=== PATIENT | female | born 1960 | race Caucasian/White ===

== ENCOUNTER 2024-01-05 21:36 | Inpatient (IN) | payer MEDICAID ==
[~2024-01-05] VITALS: Ht 152.4 cm; Wt 55.8 kg
[2024-01-05 21:50] VITALS: BP_SYST 95; PULSE 81; RESP 18; TEMP 96.8; O2SAT 93
[2024-01-06] MEDS: MORPHINE 4 MG INJ. 4 MG/ML VIAL IVP ONE (00:44)
[2024-01-06 01:15] LABS: BASOPHILS % (AUTO) 0.1 % (0.0-2.0); EOSINOPHILS % (AUTO) 0.1 % (0.0-4.0); HEMATOCRIT 46.6 % (36-48); HEMOGLOBIN 15.9 g/dL (12.0-16.0); LYMPHOCYTES # (AUTO) 0.3 K/uL (1.0-5.5); LYMPHOCYTES % (AUTO) 1.5 % (20.5-51.5); MEAN CORPUSCULAR HEMOGLOBIN 30 pg (27-31); MEAN CORPUSCULAR HGB CONC 34 % (32-36); MEAN CORPUSCULAR VOLUME 88 fL (79.0-98.0); MONOCYTES # (AUTO) 0.3 K/uL (0.0-1.0); MONOCYTES % (AUTO) 1.4 % (1.7-9.3); NEUTROPHILS # (AUTO) 20.9 K/uL (1.8-7.7); NEUTROPHILS % (AUTO) 96.9 % (40.0-70.0); PLATELET COUNT (AUTO) 243 K/uL (130-430); RED BLOOD CELL COUNT(AUTO) 5.28 MIL/uL (4.2-6.2); RED CELL DISTRIBUTION WIDTH 13.7 % (9.0-15.0); WHITE BLOOD COUNT (AUTO) 21.5 K/uL (4.8-10.8)
[2024-01-06 01:25] LABS: ANION GAP 12 (5-15); CALCIUM 9.1 mg/dL (8.4-11.0); CARBON DIOXIDE 24 mmol/L (23-29); CHLORIDE 93 mmol/L (98-107); CREATININE 2.79 mg/dL (0.55-1.30); GFR AFRICAN AMERICAN 22 mL/min (>90); GLUCOSE 102 mg/dL (74-106); POTASSIUM 3.9 mmol/L (3.5-5.1); SODIUM SERUM 129 mmol/L (136-145); UREA NITROGEN, BLOOD 57 mg/dL (8-21)
[2024-01-06 01:26] LABS: GFR NON AFRICAN-AMERICAN 18 mL/min (>90)
[2024-01-06] MEDS: LORazepam 2 MG/ML VIAL IVP ONE (03:00)
[2024-01-06] MEDS ORDERED: LORazepam 2 MG/ML VIAL ONE (05:21)
[2024-01-06] MEDS: NACL 0.9% 1,000 ML IV ONE (05:23)
[2024-01-06] MEDS: LORazepam 2 MG/ML VIAL IVP PRN ×2 (05:26→22:04)
[2024-01-06 07:30] LABS: BILIRUBIN,URINE 1+ (NEGATIVE); BLOOD, URINE 3+ (NEGATIVE); CLARITY/URINE SL CLOUDY (CLEAR); COLOR,URINE BROWN (YELLOW); GLUCOSE,URINE NEGATIVE (NEGATIVE); KETONES,URINE NEGATIVE (NEGATIVE); LEUKOCYTE ESTERASE ,URINE TRACE (NEGATIVE); NITRITE, URINE NEGATIVE (NEGATIVE); PROTEIN URINE 2+ (NEGATIVE)
[2024-01-06] MEDS ORDERED: DOCUSATE SODIUM 100 MG CAPSULE PO PRN (07:45)
[2024-01-06] MEDS ORDERED: ONDANSETRON HCL 4 MG/2 ML VIAL IVP PRN (07:45)
[2024-01-06] MEDS ORDERED: MUPIROCIN 2% TOPICAL OINTMENT 22 GM NS PRN (07:45)
[2024-01-06 07:49] LABS: BACTERIA,URINE FEW /HPF (None Seen); RBC,URINE 80-100 /HPF (0-3)
[2024-01-06 07:50] LABS: COARSE GRANULAR CASTS,URINE 0-3 /LPF (None Seen)
[2024-01-06] MEDS: NACL 0.9% 1,000 ML IV SCH (08:15)
[2024-01-06 08:20] LABS: BARBITURATE, URINE NEGATIVE (NEG <=200); METHAMPHETAMINES SCREEN,URINE POSITIVE (NEG <=500); URINE AMPHETAMINE POSITIVE (NEG <=500); URINE METHADONE NEGATIVE (NEG <=200)
[2024-01-06 08:21] LABS: BENZODIAZEPINE, URINE POSITIVE (NEG <=150); CANNABINOID, URINE NEGATIVE (NEG <=50); COCAINE, URINE NEGATIVE (NEG <=150); OPIATE, URINE POSITIVE (NEG <=100); PHENCYCLIDINE SCREEN,URINE NEGATIVE (NEG <=25); URINE OXYCODONE SCREEN NEGATIVE (NEG <=100)
[2024-01-06 08:24] LABS: UR TRICYCLIC ANTIDEPRESSANTS NEGATIVE (NEG <=300)
[2024-01-06] MEDS ORDERED: ACETAMINOPHEN 325 MG TABLET PO PRN ×2 (08:45)
[2024-01-06] MEDS ORDERED: cefTRIAXone 1 GM VIAL ONE (09:33)
[2024-01-06] MEDS: chlordiazePOXIDE HCL 25 MG CAPSULE PO SCH (09:45)
[2024-01-06] MEDS ORDERED: ACETAMINOPHEN 500 MG TABLET ONE (11:04)
[2024-01-06] MEDS: ACETAMINOPHEN 325 MG TABLET PO PRN (11:10)
[2024-01-06] MEDS: cefTRIAXone 1 GM in D5W 50 ML IV SCH (14:43)
[2024-01-06 15:12] LABS: INR 1.2 (0.8-1.2)
[2024-01-06 17:56] LABS: BASOPHILS % (AUTO) 0.1 % (0.0-2.0); EOSINOPHILS # (AUTO) 0.2 K/uL (0.0-0.4); HEMOGLOBIN 15.5 g/dL (12.0-16.0); LYMPHOCYTES # (AUTO) 0.1 K/uL (1.0-5.5); LYMPHOCYTES % (AUTO) 0.6 % (20.5-51.5); MEAN CORPUSCULAR HEMOGLOBIN 30 pg (27-31); MEAN CORPUSCULAR HGB CONC 34 % (32-36); MEAN CORPUSCULAR VOLUME 87 fL (79.0-98.0); MONOCYTES % (AUTO) 0.2 % (1.7-9.3); NEUTROPHILS # (AUTO) 18.3 K/uL (1.8-7.7); NEUTROPHILS % (AUTO) 98.1 % (40.0-70.0); PLATELET COUNT (AUTO) 188 K/uL (130-430); RED BLOOD CELL COUNT(AUTO) 5.17 MIL/uL (4.2-6.2); RED CELL DISTRIBUTION WIDTH 13.7 % (9.0-15.0); WHITE BLOOD COUNT (AUTO) 18.7 K/uL (4.8-10.8)
[2024-01-06 18:57] VITALS: BP_SYST 133; PULSE 110; RESP 20; TEMP 99.3; O2SAT 95
[2024-01-06 20:00] VITALS: BP_SYST 191; PULSE 65; RESP 22; TEMP 100.7
[2024-01-07 07:20] LABS: CALCIUM 7.6 mg/dL (8.4-11.0); CREATININE 1.82 mg/dL (0.55-1.30)
[2024-01-07 07:39] LABS: POTASSIUM 2.7 mmol/L (3.5-5.1)
[2024-01-07 07:41] LABS: BASOPHILS % (AUTO) 0.2 % (0.0-2.0); EOSINOPHILS # (AUTO) 0.1 K/uL (0.0-0.4); EOSINOPHILS % (AUTO) 0.6 % (0.0-4.0); HEMATOCRIT 42.4 % (36-48); HEMOGLOBIN 14.5 g/dL (12.0-16.0); LYMPHOCYTES # (AUTO) 0.2 K/uL (1.0-5.5); MEAN CORPUSCULAR HEMOGLOBIN 30 pg (27-31); MEAN CORPUSCULAR HGB CONC 34 % (32-36); MEAN CORPUSCULAR VOLUME 88 fL (79.0-98.0); MONOCYTES # (AUTO) 0.2 K/uL (0.0-1.0); MONOCYTES % (AUTO) 1.2 % (1.7-9.3); PLATELET COUNT (AUTO) 191 K/uL (130-430); RED BLOOD CELL COUNT(AUTO) 4.82 MIL/uL (4.2-6.2); WHITE BLOOD COUNT (AUTO) 19.6 K/uL (4.8-10.8)
[2024-01-07] MEDS: POTASSIUM CHLORIDE 20 MEQ TABLET.ER PO PRN (08:53)
[2024-01-07] MEDS: HEPARIN SODIUM,PORCINE 5,000 UNITS/ML VIAL SUBCUT SCH (09:09)
[2024-01-07] MEDS: metroNIDAZOLE 500 mg/NS 100 ML IV SCH (09:28)
[2024-01-07] MEDS: CALCIUM GLUCONATE 1 GM in NS 100 ML IV ONE (10:00)
[2024-01-07 11:17] VITALS: BP_SYST 90; PULSE 92; RESP 16; TEMP 97.1; O2SAT 92
[2024-01-07 13:11] VITALS: BP_SYST 99; PULSE 78; RESP 16; TEMP 98; O2SAT 92
[2024-01-07] MEDS: PIPERACILLIN/TAZO 3.375 GM in D5W 50 ML IV ONE (13:14)
[2024-01-07] MEDS: POTASSIUM CHLORIDE 40 MEQ in NS 250 ML IV ONE (14:31)
[2024-01-07 15:07] VITALS: BP_SYST 113; PULSE 59; RESP 16; TEMP 97.7; O2SAT 93
[2024-01-07 20:00] VITALS: BP_SYST 114; PULSE 82; RESP 18; TEMP 97.8; O2SAT 94
[2024-01-07] MEDS: PIPERACILLIN/TAZO 3.375 GM in D5W 50 ML IV SCH (22:13)
[2024-01-07] MEDS ORDERED: LINEZOLID 300 ML IV ONE (23:17)
[2024-01-07] MEDS: LINEZOLID 300 ML IV SCH (23:28)
[2024-01-08 00:17] VITALS: BP_SYST 98; PULSE 83; RESP 19; TEMP 98.5; O2SAT 69; O2SAT 94
[2024-01-08 07:26] LABS: HEMATOCRIT 45.2 % (36-48); HEMOGLOBIN 15.4 g/dL (12.0-16.0); MEAN CORPUSCULAR HEMOGLOBIN 30 pg (27-31); MEAN CORPUSCULAR HGB CONC 34 % (32-36); MEAN CORPUSCULAR VOLUME 88 fL (79.0-98.0); PLATELET COUNT (AUTO) 138 K/uL (130-430); RED BLOOD CELL COUNT(AUTO) 5.13 MIL/uL (4.2-6.2); RED CELL DISTRIBUTION WIDTH 13.8 % (9.0-15.0); WHITE BLOOD COUNT (AUTO) 21.3 K/uL (4.8-10.8)
[2024-01-08 07:49] LABS: CALCIUM 8.1 mg/dL (8.4-11.0); CREATININE 1.32 mg/dL (0.55-1.30)
[2024-01-08 07:51] LABS: POTASSIUM 2.9 mmol/L (3.5-5.1)
[2024-01-08 08:24] VITALS: BP_SYST 87; PULSE 60; RESP 24; TEMP 96.4; O2SAT 94
[2024-01-08 09:42] LABS: ATYPICAL LYMPHOCYTES % 1 % (0-0); BAND % (MANUAL) 13 % (0-6); BASOPHILS % (MANUAL) 0 % (0-2); EOSINOPHILS % (MANUAL) 0 % (0-7); LYMPHOCYTES % (MANUAL) 2 % (20-46); MONOCYTES % (MANUAL) 2 % (0-11); PLATELET ESTIMATE ADEQUATE (ADEQUATE)
[2024-01-08 11:23] VITALS: BP_SYST 90; PULSE 72; RESP 16; TEMP 97; O2SAT 93
[2024-01-08] MEDS: NACL 0.9% 1,000 ML IV SCH (12:17)
[2024-01-08] MEDS: POTASSIUM CHLORIDE 60 MEQ in NS 500 ML IV ONE (14:04)
[2024-01-08 15:18] VITALS: BP_SYST 95; PULSE 66; RESP 16; TEMP 96.1; O2SAT 93
[2024-01-08 20:00] VITALS: BP_SYST 85; PULSE 67; RESP 18; TEMP 97.8; O2SAT 98
[2024-01-08] MEDS: NACL 0.9% 1,000 ML IV ONE (20:27)
[2024-01-09 00:18] VITALS: BP_SYST 111; PULSE 77; RESP 17; TEMP 96.4; O2SAT 100
[2024-01-09 01:52] LABS: BILIRUBIN,URINE 2+ (NEGATIVE); BLOOD, URINE 3+ (NEGATIVE); CLARITY/URINE SL CLOUDY (CLEAR); COLOR,URINE YELLOW (YELLOW); GLUCOSE,URINE NEGATIVE (NEGATIVE); KETONES,URINE NEGATIVE (NEGATIVE); LEUKOCYTE ESTERASE ,URINE TRACE (NEGATIVE); NITRITE, URINE NEGATIVE (NEGATIVE); PROTEIN URINE 2+ (NEGATIVE)
[2024-01-09 02:21] LABS: BACTERIA,URINE RARE /HPF (None Seen); RBC,URINE 20-50 /HPF (0-3)
[2024-01-09 05:49] LABS: EOSINOPHILS # (AUTO) 0.1 K/uL (0.0-0.4); EOSINOPHILS % (AUTO) 0.3 % (0.0-4.0); HEMATOCRIT 43.6 % (36-48); HEMOGLOBIN 14.9 g/dL (12.0-16.0); LYMPHOCYTES # (AUTO) 0.8 K/uL (1.0-5.5); LYMPHOCYTES % (AUTO) 4.3 % (20.5-51.5); MEAN CORPUSCULAR HEMOGLOBIN 30 pg (27-31); MEAN CORPUSCULAR HGB CONC 34 % (32-36); MEAN CORPUSCULAR VOLUME 88 fL (79.0-98.0); MONOCYTES # (AUTO) 0.8 K/uL (0.0-1.0); NEUTROPHILS # (AUTO) 17.8 K/uL (1.8-7.7); NEUTROPHILS % (AUTO) 91.4 % (40.0-70.0); PLATELET COUNT (AUTO) 124 K/uL (130-430); RED BLOOD CELL COUNT(AUTO) 4.96 MIL/uL (4.2-6.2); RED CELL DISTRIBUTION WIDTH 14.2 % (9.0-15.0); WHITE BLOOD COUNT (AUTO) 19.5 K/uL (4.8-10.8)
[2024-01-09 06:16] LABS: CALCIUM 7.6 mg/dL (8.4-11.0); CREATININE 0.98 mg/dL (0.55-1.30)
[2024-01-09 08:10] VITALS: BP_SYST 102; PULSE 67; RESP 28; TEMP 97.7; O2SAT 96
[2024-01-09 08:11] VITALS: O2SAT 96
[2024-01-09] MEDS ORDERED: ACETAMINOPHEN 500 MG TABLET PO PRN ×3 (10:15)
[2024-01-09] MEDS: FOLIC ACID 1 MG TABLET PO SCH (10:59)
[2024-01-09] MEDS: THIAMINE HCL 100 MG TABLET PO ONE (11:06)
[2024-01-09 11:13] VITALS: BP_SYST 142; PULSE 69; RESP 18; TEMP 97.8; O2SAT 98
[2024-01-09 16:16] VITALS: BP_SYST 144; PULSE 70; RESP 20; TEMP 98; O2SAT 98
[2024-01-09 20:10] VITALS: BP_SYST 134; PULSE 68; RESP 22; TEMP 97.2; O2SAT 98
[2024-01-10 00:20] VITALS: BP_SYST 121; PULSE 75; RESP 20; TEMP 97.5; O2SAT 98
[2024-01-10 04:48] LABS: BASOPHILS % (AUTO) 0.1 % (0.0-2.0); EOSINOPHILS % (AUTO) 0.3 % (0.0-4.0); HEMATOCRIT 42.2 % (36-48); HEMOGLOBIN 14.4 g/dL (12.0-16.0); LYMPHOCYTES # (AUTO) 0.9 K/uL (1.0-5.5); LYMPHOCYTES % (AUTO) 6.6 % (20.5-51.5); MEAN CORPUSCULAR HEMOGLOBIN 30 pg (27-31); MEAN CORPUSCULAR HGB CONC 34 % (32-36); MEAN CORPUSCULAR VOLUME 87 fL (79.0-98.0); MONOCYTES # (AUTO) 0.7 K/uL (0.0-1.0); MONOCYTES % (AUTO) 4.8 % (1.7-9.3); NEUTROPHILS # (AUTO) 12.5 K/uL (1.8-7.7); NEUTROPHILS % (AUTO) 88.2 % (40.0-70.0); PLATELET COUNT (AUTO) 165 K/uL (130-430); RED BLOOD CELL COUNT(AUTO) 4.83 MIL/uL (4.2-6.2); RED CELL DISTRIBUTION WIDTH 14.3 % (9.0-15.0); WHITE BLOOD COUNT (AUTO) 14.2 K/uL (4.8-10.8)
[2024-01-10 05:01] LABS: CALCIUM 7.7 mg/dL (8.4-11.0); CREATININE 0.94 mg/dL (0.55-1.30)
[2024-01-10 05:15] LABS: POTASSIUM 2.8 mmol/L (3.5-5.1)
[2024-01-10 08:03] VITALS: BP_SYST 158; PULSE 78; RESP 22; TEMP 96.6; O2SAT 99
[2024-01-10 08:30] VITALS: O2SAT 99
[2024-01-10] MEDS: THIAMINE HCL 100 MG TABLET PO SCH (09:05)
[2024-01-10] MEDS: POTASSIUM CHLORIDE 40 MEQ, LIDOCAINE JECT 2% PF 100 MG 50 MG in NS 250 ML IV PRN (09:05)
[2024-01-10 09:52] LABS: ALBUMIN 1.5 g/dL (3.4-4.8); BILIRUBIN,DIRECT 1.6 mg/dL (0.0-0.3); TOTAL PROTEIN, SERUM 6.3 g/dL (6.4-8.3)
[2024-01-10] MEDS: POTASSIUM CHLORIDE 20 MEQ TABLET.ER PO ONE (10:31)
[2024-01-10 11:51] VITALS: BP_SYST 147; PULSE 80; RESP 19; TEMP 97.9; O2SAT 95
[2024-01-10] MEDS: amLODIPine BESYLATE 5 MG TABLET PO ONE (16:19)
[2024-01-10 18:29] VITALS: BP_SYST 151; PULSE 74; RESP 20; TEMP 98; O2SAT 95
[2024-01-10 19:55] VITALS: BP_SYST 165; PULSE 77; RESP 22; TEMP 97.5; O2SAT 100
[2024-01-10] MEDS: chlordiazePOXIDE HCL 25 MG CAPSULE PO SCH (21:46)
[2024-01-10] MEDS: HYDROcodone/ACETAMIN 5-325 MG TAB (NORCO/ VICODIN) PO PRN (21:47)
[2024-01-11 00:20] VITALS: BP_SYST 157; PULSE 77; RESP 20; TEMP 97.5; O2SAT 100
[2024-01-11 05:58] LABS: BASOPHILS % (AUTO) 0.1 % (0.0-2.0); EOSINOPHILS % (AUTO) 0.3 % (0.0-4.0); HEMATOCRIT 40.1 % (36-48); HEMOGLOBIN 13.8 g/dL (12.0-16.0); LYMPHOCYTES # (AUTO) 0.9 K/uL (1.0-5.5); LYMPHOCYTES % (AUTO) 8.8 % (20.5-51.5); MEAN CORPUSCULAR HEMOGLOBIN 30 pg (27-31); MEAN CORPUSCULAR HGB CONC 34 % (32-36); MEAN CORPUSCULAR VOLUME 87 fL (79.0-98.0); MONOCYTES # (AUTO) 0.4 K/uL (0.0-1.0); MONOCYTES % (AUTO) 4.2 % (1.7-9.3); NEUTROPHILS # (AUTO) 9.1 K/uL (1.8-7.7); NEUTROPHILS % (AUTO) 86.6 % (40.0-70.0); PLATELET COUNT (AUTO) 182 K/uL (130-430); RED BLOOD CELL COUNT(AUTO) 4.62 MIL/uL (4.2-6.2); RED CELL DISTRIBUTION WIDTH 14.4 % (9.0-15.0)
[2024-01-11 06:24] LABS: CALCIUM 7.4 mg/dL (8.4-11.0); CREATININE 0.92 mg/dL (0.55-1.30)
[2024-01-11 07:03] LABS: POTASSIUM 2.9 mmol/L (3.5-5.1)
[2024-01-11 07:18] LABS: WHITE BLOOD COUNT (AUTO) 10.5 K/uL (4.8-10.8)
[2024-01-11 07:40] VITALS: BP_SYST 154; PULSE 92; RESP 18; TEMP 96.8; O2SAT 96
[2024-01-11] MEDS ORDERED: POTASSIUM CHLORIDE 20 MEQ TABLET.ER PO ONE (08:45)
[2024-01-11] MEDS: amLODIPine BESYLATE 5 MG TABLET PO SCH (09:00)
[2024-01-11] MEDS: D5W 1,000 ML IV SCH (09:19)
[2024-01-11 10:30] VITALS: O2SAT 96
[2024-01-11 11:22] VITALS: BP_SYST 123; PULSE 96; RESP 17; TEMP 97.9; O2SAT 94
[2024-01-11] MEDS: KCL 20 mEq in 100 mL (PREMIX) 100 ML IV ONE (15:21)
[2024-01-11 16:23] VITALS: BP_SYST 166; PULSE 91; RESP 17; TEMP 97.2; O2SAT 100
[2024-01-11] MEDS: hydrALAZINE HCL 20 MG/ML VIAL IVP PRN (17:35)
[2024-01-11 20:00] VITALS: BP_SYST 150; PULSE 95; RESP 18; TEMP 97.8; O2SAT 100
[2024-01-12] VITALS: BP_SYST 157; PULSE 87; RESP 18; TEMP 98.1; O2SAT 100
[2024-01-12 06:07] LABS: BASOPHILS % (AUTO) 0.1 % (0.0-2.0); EOSINOPHILS % (AUTO) 0.2 % (0.0-4.0); HEMATOCRIT 40.6 % (36-48); HEMOGLOBIN 14.2 g/dL (12.0-16.0); LYMPHOCYTES # (AUTO) 0.9 K/uL (1.0-5.5); MEAN CORPUSCULAR HEMOGLOBIN 30 pg (27-31); MEAN CORPUSCULAR HGB CONC 35 % (32-36); MEAN CORPUSCULAR VOLUME 87 fL (79.0-98.0); MONOCYTES # (AUTO) 0.4 K/uL (0.0-1.0); MONOCYTES % (AUTO) 4.4 % (1.7-9.3); NEUTROPHILS % (AUTO) 84.3 % (40.0-70.0); PLATELET COUNT (AUTO) 200 K/uL (130-430); RED BLOOD CELL COUNT(AUTO) 4.68 MIL/uL (4.2-6.2); RED CELL DISTRIBUTION WIDTH 14.4 % (9.0-15.0); WHITE BLOOD COUNT (AUTO) 8.3 K/uL (4.8-10.8)
[2024-01-12 06:32] LABS: CALCIUM 7.7 mg/dL (8.4-11.0); CREATININE 0.84 mg/dL (0.55-1.30)
[2024-01-12 07:07] LABS: POTASSIUM 2.8 mmol/L (3.5-5.1)
[2024-01-12 08:05] VITALS: O2SAT 94
[2024-01-12 08:21] VITALS: BP_SYST 174; PULSE 82; RESP 19; TEMP 97.3; O2SAT 94
[2024-01-12] MEDS: KCL 40 mEq in D5W 1000 mL 1,000 ML IV SCH (08:30)
[2024-01-12] MEDS ORDERED: KCL 40 mEq in 100 mL (PREMIX) 100 ML IV ONE (08:30)
[2024-01-12] MEDS: amLODIPine BESYLATE 10 MG TABLET PO SCH (09:00)
[2024-01-12 11:30] VITALS: BP_SYST 158; PULSE 78; RESP 19; TEMP 97.9; O2SAT 97
[2024-01-12] MEDS: MAGNESIUM SULFATE 50 ML IV PRN (11:38)
[2024-01-12] MEDS: MAGNESIUM SULFATE/D5W 100 ML IV ONE (14:08)
[2024-01-12 17:50] VITALS: BP_SYST 158; PULSE 85; RESP 20; TEMP 98.4; O2SAT 99
[2024-01-12 20:00] VITALS: BP_SYST 147; PULSE 85; RESP 18; TEMP 98.3; O2SAT 98
[2024-01-12] MEDS: BALSAM PERU/CASTOR OIL 56.7 GM OINT...G. TP ONE (21:32)
[2024-01-13] MEDS: KCL 40 mEq in 100 mL (PREMIX) 100 ML IV ONE (00:27)
[2024-01-13 00:46] VITALS: BP_SYST 157; PULSE 72; RESP 16; TEMP 96.4; O2SAT 99
[2024-01-13] MEDS: ZOLPIDEM TARTRATE 5 MG TABLET PO PRN (01:05)
[2024-01-13 08:31] VITALS: BP_SYST 119; PULSE 87; RESP 20; TEMP 97.5; O2SAT 97
[2024-01-13 08:38] VITALS: O2SAT 97
[2024-01-13] MEDS: BALSAM PERU/CASTOR OIL 56.7 GM OINT...G. TP SCH (09:51)
[2024-01-13 10:27] LABS: BASOPHILS # (AUTO) 0.1 K/uL (0.0-0.2); BASOPHILS % (AUTO) 0.6 % (0.0-2.0); EOSINOPHILS % (AUTO) 0.5 % (0.0-4.0); HEMOGLOBIN 13.5 g/dL (12.0-16.0); LYMPHOCYTES # (AUTO) 0.9 K/uL (1.0-5.5); LYMPHOCYTES % (AUTO) 9.9 % (20.5-51.5); MEAN CORPUSCULAR HEMOGLOBIN 30 pg (27-31); MEAN CORPUSCULAR HGB CONC 35 % (32-36); MEAN CORPUSCULAR VOLUME 86 fL (79.0-98.0); MONOCYTES # (AUTO) 0.6 K/uL (0.0-1.0); MONOCYTES % (AUTO) 6.8 % (1.7-9.3); NEUTROPHILS # (AUTO) 7.8 K/uL (1.8-7.7); NEUTROPHILS % (AUTO) 82.2 % (40.0-70.0); PLATELET COUNT (AUTO) 202 K/uL (130-430); RED BLOOD CELL COUNT(AUTO) 4.52 MIL/uL (4.2-6.2); RED CELL DISTRIBUTION WIDTH 14.2 % (9.0-15.0); WHITE BLOOD COUNT (AUTO) 9.5 K/uL (4.8-10.8)
[2024-01-13 10:39] LABS: ALBUMIN 1.7 g/dL (3.4-4.8); CALCIUM 7.6 mg/dL (8.4-11.0); CREATININE 0.74 mg/dL (0.55-1.30); POTASSIUM 3.1 mmol/L (3.5-5.1); TOTAL PROTEIN, SERUM 7.3 g/dL (6.4-8.3)
[2024-01-13 12:48] VITALS: BP_SYST 143; PULSE 82; RESP 20; TEMP 97.5; O2SAT 99
[2024-01-13] MEDS ORDERED: MAGNESIUM SULFATE 1 GM/2 ML VIAL IVP ONE (13:00)
[2024-01-13 16:34] VITALS: BP_SYST 120; PULSE 76; RESP 18; TEMP 96.8; O2SAT 96
[2024-01-13] MEDS: MAGNESIUM SUL 2 GM/50 ML PREMIX IV ONE (19:46)
[2024-01-13 20:00] VITALS: BP_SYST 137; PULSE 81; RESP 17; TEMP 97.8; O2SAT 98
[2024-01-13] MEDS: POTASSIUM CHLORIDE 20 MEQ TABLET.ER PO ONE (20:00)
[2024-01-14 00:29] VITALS: BP_SYST 140; PULSE 74; RESP 15; TEMP 97.6; O2SAT 98
[2024-01-14 07:01] LABS: BASOPHILS % (AUTO) 0.4 % (0.0-2.0); EOSINOPHILS # (AUTO) 0.1 K/uL (0.0-0.4); EOSINOPHILS % (AUTO) 0.7 % (0.0-4.0); HEMATOCRIT 40.1 % (36-48); HEMOGLOBIN 13.8 g/dL (12.0-16.0); LYMPHOCYTES # (AUTO) 1.1 K/uL (1.0-5.5); LYMPHOCYTES % (AUTO) 10.1 % (20.5-51.5); MEAN CORPUSCULAR HEMOGLOBIN 30 pg (27-31); MEAN CORPUSCULAR HGB CONC 34 % (32-36); MEAN CORPUSCULAR VOLUME 86 fL (79.0-98.0); MONOCYTES # (AUTO) 0.9 K/uL (0.0-1.0); MONOCYTES % (AUTO) 8.2 % (1.7-9.3); NEUTROPHILS # (AUTO) 8.4 K/uL (1.8-7.7); NEUTROPHILS % (AUTO) 80.6 % (40.0-70.0); PLATELET COUNT (AUTO) 217 K/uL (130-430); RED BLOOD CELL COUNT(AUTO) 4.66 MIL/uL (4.2-6.2); RED CELL DISTRIBUTION WIDTH 14.3 % (9.0-15.0); WHITE BLOOD COUNT (AUTO) 10.4 K/uL (4.8-10.8)
[2024-01-14 07:27] LABS: CALCIUM 7.9 mg/dL (8.4-11.0); CREATININE 0.77 mg/dL (0.55-1.30); POTASSIUM 3.7 mmol/L (3.5-5.1)
[2024-01-14 08:44] VITALS: BP_SYST 154; PULSE 77; RESP 16; TEMP 97.2; O2SAT 98
[2024-01-14 12:43] VITALS: BP_SYST 154; PULSE 90; RESP 16; TEMP 97.8; O2SAT 99
[2024-01-14 16:17] VITALS: BP_SYST 138; PULSE 80; RESP 16; TEMP 97.5; O2SAT 97
[2024-01-14 20:00] VITALS: BP_SYST 138; PULSE 79; RESP 18; TEMP 97.1; O2SAT 95
[2024-01-15 00:41] VITALS: BP_SYST 120; PULSE 81; RESP 18; TEMP 97.6; O2SAT 98
[2024-01-15 08:09] VITALS: BP_SYST 139; PULSE 79; RESP 22; TEMP 97.6; O2SAT 100
[2024-01-15 11:39] VITALS: BP_SYST 135; PULSE 76; RESP 16; TEMP 97.8; O2SAT 97
[2024-01-15 16:51] VITALS: BP_SYST 126; PULSE 76; RESP 19; TEMP 98.3; O2SAT 96
[2024-01-15 20:00] VITALS: BP_SYST 147; PULSE 80; RESP 16; TEMP 98.5; O2SAT 98
[2024-01-15 21:13] VITALS: O2SAT 98
[2024-01-16 02:30] VITALS: BP_SYST 123; PULSE 79; RESP 17; TEMP 96.5; O2SAT 98
[2024-01-16 08:06] VITALS: BP_SYST 132; PULSE 76; RESP 18; TEMP 97.2; O2SAT 98
[2024-01-16 11:48] VITALS: BP_SYST 114; PULSE 77; RESP 18; TEMP 97.5; O2SAT 98
[2024-01-16 15:05] VITALS: O2SAT 96
[2024-01-16 16:21] VITALS: BP_SYST 119; PULSE 73; RESP 16; TEMP 97.9; O2SAT 97
[2024-01-16] MEDS ORDERED: MULT-1117 PO (18:13)
[2024-01-16] MEDS ORDERED: THIA100T70 PO (18:13)
[2024-01-16] MEDS ORDERED: NOR10 PO (18:13)
[2024-01-16] MEDS ORDERED: HYDR50TA61 PO (18:13)
[2024-01-16] MEDS ORDERED: FOLI-43 PO (18:13)
[2024-01-16] MEDS ORDERED: AUG875 PO (18:13)
[2024-01-16 18:44] VITALS: BP_SYST 119; PULSE 73; RESP 16; TEMP 97.9; O2SAT 97
== END 2024-01-16 22:30 | disposition home health service (06) | DRG 720 ==
LOC: SED 21:36 → STU 01-06 05:02 → SMU 01-14 10:34
PROVIDERS: ADMIT General Practice; ATTEND General Practice
PROC: 05HY33Z Insertion of Infusion Device into Upper Vein, Percutaneous Approach (ICD-10-PCS; principal; 2024-01-06)
DX: A40.0 Sepsis due to streptococcus, group A (principal); N17.0 Acute kidney failure with tubular necrosis; G92.8 Other toxic encephalopathy; L03.115 Cellulitis of right lower limb; E87.1 Hypo-osmolality and hyponatremia; E83.51 Hypocalcemia; Z20.822 Contact with and (suspected) exposure to COVID-19; L03.116 Cellulitis of left lower limb; F10.239 Alcohol dependence with withdrawal, unspecified; F11.90 Opioid use, unspecified, uncomplicated; I10 Essential (primary) hypertension; K74.60 Unspecified cirrhosis of liver; F15.90 Other stimulant use, unspecified, uncomplicated; E87.6 Hypokalemia; G31.2 Degeneration of nervous system due to alcohol; F19.90 Other psychoactive substance use, unspecified, uncomplicated; Z79.899 Other long term (current) drug therapy; Y92.9 Unspecified place or not applicable
CPT/HCPCS: 36415; 70450-TC; 71045; 72125-TC; 73200-TC; 73502; 80048; 80053; 80076; 80307; 81000; 81001; 81015; 82140; 83037; 83735; 83880; 84484; 85007; 85025; 85027; 85610; 85730; 87040; 87186; 92610-GN; 93005; 93306; 93970; 97110-GO; 97110-GP; 97112-GO; 97112-GP; 97116-GP; 97530-GO; 97530-GP; 99285; G0378; J0360; J0610; J0696; J1644; J2020; J2060; J2270; J2543; J3475; J3480; J3490; J7040; J7050; J7060

== ENCOUNTER 2024-01-17 20:16 | Observation (INO) | payer MEDICAID ==
[~2024-01-17] VITALS: Ht 152.4 cm; Wt 49.9 kg
[~2024-01-17 20:16] MED LIST: AUG875 PO; FOLI-43 PO; HYDR50TA61 PO; MULT-1117 PO; NOR10 PO; THIA100T70 PO
[2024-01-17 20:24] VITALS: BP_SYST 125; PULSE 80; RESP 18; TEMP 97.9; O2SAT 100
[2024-01-17 22:07] LABS: BASOPHILS # (AUTO) 0.1 K/uL (0.0-0.2); BASOPHILS % (AUTO) 1.2 % (0.0-2.0); EOSINOPHILS # (AUTO) 0.1 K/uL (0.0-0.4); HEMATOCRIT 39.1 % (36-48); HEMOGLOBIN 13.4 g/dL (12.0-16.0); LYMPHOCYTES # (AUTO) 1.1 K/uL (1.0-5.5); LYMPHOCYTES % (AUTO) 11.7 % (20.5-51.5); MEAN CORPUSCULAR HEMOGLOBIN 30 pg (27-31); MEAN CORPUSCULAR HGB CONC 34 % (32-36); MEAN CORPUSCULAR VOLUME 86 fL (79.0-98.0); MONOCYTES # (AUTO) 0.5 K/uL (0.0-1.0); MONOCYTES % (AUTO) 5.5 % (1.7-9.3); NEUTROPHILS # (AUTO) 7.4 K/uL (1.8-7.7); NEUTROPHILS % (AUTO) 80.6 % (40.0-70.0); PLATELET COUNT (AUTO) 197 K/uL (130-430); RED BLOOD CELL COUNT(AUTO) 4.54 MIL/uL (4.2-6.2); RED CELL DISTRIBUTION WIDTH 14.4 % (9.0-15.0); WHITE BLOOD COUNT (AUTO) 9.2 K/uL (4.8-10.8)
[2024-01-17 22:31] LABS: ANION GAP 11 (5-15); CALCIUM 8.3 mg/dL (8.4-11.0); CARBON DIOXIDE 20 mmol/L (23-29); CHLORIDE 106 mmol/L (98-107); CREATININE 0.81 mg/dL (0.55-1.30); GFR AFRICAN AMERICAN 92 mL/min (>90); GLUCOSE 88 mg/dL (74-106); POTASSIUM 3.7 mmol/L (3.5-5.1); SODIUM SERUM 137 mmol/L (136-145); UREA NITROGEN, BLOOD 22 mg/dL (8-21)
[2024-01-17 22:34] LABS: GFR NON AFRICAN-AMERICAN 76 mL/min (>90)
[2024-01-17 23:05] LABS: ALANINE AMINOTRANSFERASE 34 U/L (12-78); ASPARTATE AMINOTRANSFERASE 44 U/L (10-37); BILIRUBIN,DIRECT 0.1 mg/dL (0.0-0.3); TOTAL BILIRUBIN 0.6 mg/dL (0.0-1.0); TOTAL PROTEIN, SERUM 8.2 g/dL (6.4-8.3)
[2024-01-17 23:35] LABS: COVID19 ANTIGEN SOFIA FIA NEGATIVE (NEGATIVE)
[2024-01-17 23:56] LABS: INFLUENZA TYPE A Negative (NEGATIVE); INFLUENZA TYPE B NEGATIVE (NEGATIVE)
[2024-01-18 03:56] VITALS: O2SAT 96
[2024-01-18 04:00] VITALS: BP_SYST 127; PULSE 78; RESP 16; TEMP 97.5; O2SAT 97
[2024-01-18 08:00] VITALS: BP_SYST 123; PULSE 74; PULSE 76; RESP 18; TEMP 98.6; O2SAT 98
[2024-01-18 11:48] VITALS: BP_SYST 120; PULSE 73; RESP 16; TEMP 97.1; O2SAT 73
[2024-01-18 16:00] VITALS: BP_SYST 119; PULSE 81; RESP 16; TEMP 97.4; O2SAT 99
[2024-01-18 20:00] VITALS: BP_SYST 128; PULSE 79; RESP 16; TEMP 98.1; O2SAT 98
[2024-01-18] MEDS: AMOXICILLIN/POTASSIUM CLAV 875 MG TABLET PO SCH (21:45)
[2024-01-19 00:05] VITALS: BP_SYST 128; PULSE 76; RESP 18; TEMP 97; O2SAT 96
[2024-01-19 05:00] VITALS: BP_SYST 124; PULSE 69; RESP 16; TEMP 97.9; O2SAT 97
[2024-01-19 08:00] VITALS: BP_SYST 110; PULSE 76; RESP 18; TEMP 97.2; O2SAT 98
[2024-01-19 08:04] VITALS: O2SAT 98
[2024-01-19] MEDS: FOLIC ACID 1 MG TABLET PO SCH (08:53)
[2024-01-19] MEDS: THIAMINE HCL 100 MG TABLET PO SCH (08:53)
[2024-01-19] MEDS: MULTIVITAMINS TAB 1 TABLET PO SCH (08:53)
[2024-01-19] MEDS: amLODIPine BESYLATE 10 MG TABLET PO SCH (09:00)
[2024-01-19] MEDS: BALSAM PERU/CASTOR OIL 56.7 GM OINT...G. TP SCH (09:01)
[2024-01-19 11:30] VITALS: BP_SYST 126; PULSE 75; RESP 17; TEMP 97.7; O2SAT 98
[2024-01-19] MEDS ORDERED: THIA100T70 PO (12:03)
[2024-01-19 17:21] VITALS: BP_SYST 112; PULSE 85; RESP 18; TEMP 98; O2SAT 99
== END 2024-01-19 16:00 | disposition left against medical advice (07) ==
LOC: SED 20:16 → SMU 01-18 00:34
PROVIDERS: ADMIT Internal Medicine; ATTEND Internal Medicine
DX: F10.139 Alcohol abuse with withdrawal, unspecified (principal); Z20.822 Contact with and (suspected) exposure to COVID-19; F11.10 Opioid abuse, uncomplicated; S42.402A Unspecified fracture of lower end of left humerus, initial encounter for closed fracture; I10 Essential (primary) hypertension; L03.90 Cellulitis, unspecified; Z79.899 Other long term (current) drug therapy; X58.XXXA Exposure to other specified factors, initial encounter; Y93.89 Activity, other specified; Y92.89 Other specified places as the place of occurrence of the external cause; Y99.8 Other external cause status
CPT/HCPCS: 80076; 80048; 83880; 85025; 87081; 84484; 93005; 71045; 73070; 83605 ×2; 87804 ×2; 87426; 82397; 36415; 97110 ×2; 97112; 97530 ×2; 97116 ×2; 97162; 99285; G0378 ×2

== ENCOUNTER 2024-01-29 22:33 | Emergency (ER) | payer MEDICAID ==
[~2024-01-29] VITALS: Ht 152.4 cm; Wt 58.1 kg
[~2024-01-29 22:33] MED LIST changes: -AUG875 PO
[2024-01-29 22:51] VITALS: BP_SYST 139; PULSE 79; RESP 16; TEMP 97.2; O2SAT 94
[2024-01-30 00:10] LABS: BASOPHILS % (AUTO) 0.6 % (0.0-2.0); EOSINOPHILS # (AUTO) 0.2 K/uL (0.0-0.4); EOSINOPHILS % (AUTO) 1.8 % (0.0-4.0); HEMATOCRIT 37.8 % (36-48); HEMOGLOBIN 12.8 g/dL (12.0-16.0); LYMPHOCYTES # (AUTO) 1.4 K/uL (1.0-5.5); LYMPHOCYTES % (AUTO) 16.3 % (20.5-51.5); MEAN CORPUSCULAR HEMOGLOBIN 29 pg (27-31); MEAN CORPUSCULAR HGB CONC 34 % (32-36); MEAN CORPUSCULAR VOLUME 86 fL (79.0-98.0); MONOCYTES # (AUTO) 0.7 K/uL (0.0-1.0); MONOCYTES % (AUTO) 8.2 % (1.7-9.3); NEUTROPHILS # (AUTO) 6.5 K/uL (1.8-7.7); NEUTROPHILS % (AUTO) 73.1 % (40.0-70.0); PLATELET COUNT (AUTO) 337 K/uL (130-430); RED CELL DISTRIBUTION WIDTH 14.1 % (9.0-15.0); WHITE BLOOD COUNT (AUTO) 8.8 K/uL (4.8-10.8)
[2024-01-30 00:12] LABS: ANION GAP 12 (5-15); CARBON DIOXIDE 24 mmol/L (23-29); CHLORIDE 101 mmol/L (98-107); CREATININE 1.47 mg/dL (0.55-1.30); GFR AFRICAN AMERICAN 46 mL/min (>90); GLUCOSE 93 mg/dL (74-106); POTASSIUM 3.5 mmol/L (3.5-5.1); SODIUM SERUM 137 mmol/L (136-145); UREA NITROGEN, BLOOD 34 mg/dL (8-21)
[2024-01-30 00:13] LABS: GFR NON AFRICAN-AMERICAN 38 mL/min (>90)
[2024-01-30 00:19] LABS: ALANINE AMINOTRANSFERASE 47 U/L (12-78); ALBUMIN 2.7 g/dL (3.4-4.8); ASPARTATE AMINOTRANSFERASE 115 U/L (10-37); TOTAL BILIRUBIN 0.5 mg/dL (0.0-1.0)
[2024-01-30 04:14] VITALS: BP_SYST 100; PULSE 80; RESP 18; TEMP 97.2; O2SAT 99
[2024-01-30] MEDS: NACL 0.9% 1,000 ML IV ONE (04:29)
== END 2024-01-30 03:52 | disposition home or self-care (01) ==
LOC: SED 22:33
DX: R07.9 Chest pain, unspecified (principal); Z79.899 Other long term (current) drug therapy
CPT/HCPCS: 36415; 71046; 80053; 84484; 85025; 93005; 99285